=== PATIENT | female | born 1990 | race Caucasian/White ===

== ENCOUNTER → 2020-04-08 | Outpatient (CLI) | payer BC | END | disposition home or self-care (01) | LOC: LABWHC1 15:05 | PROVIDERS: ATTEND Family Medicine | DX: Z20.828 Contact with and (suspected) exposure to other viral communicable diseases (principal) | CPT/HCPCS: U0003; C9803 ==

== ENCOUNTER 2020-06-13 11:31 | Outpatient (CLI) | payer BC ==
[2020-06-13 12:10] VITALS: BP 137/76; PULSE 100; RESP 17; TEMP 97.7
--- NOTE | 2020-06-14 11:39 | P.MSEPDOC ---
Presenting Problems - Arrival Data Date of Arrival on Unit: 06/13/20 Time of Arrival on Unit: 11:31 Mode of Transport: Ambulatory - Complaint OB-Reason for Admission/Chief Complaint: Possible Onset of Labor, Other Comment: pt presents to triage with c/o contractions since 0500 that are 1-6 minutes. apart with a pain scale of 4/10, pt sitting in bed smiling answering questions, denies. complications at this time, reports + fm, denies lof/vb, abd soft on non tender Medical History - Information : 1 Para: 0 Term: 0 : 0 Abortions: Spontaneous or Elective: 0 Number of Living Children: 0 - Gestational Age Gestational Age by CY (wks/days): 39 Weeks and 2 Days Review of Systems - Review of Systems Constitutional: No problems Breast: No problems ENT: No problems Cardiovascular: No problems Respiratory: No problems Gastrointestinal: No problems Genitourinary: No problems Musculoskeletal: No problems Neurological: No problems Skin: No problems Vital Signs - Temperature Temperature: 97.7 F Temperature Source: Temporal Artery Scan - Pulse Right Brachial Pulse Rate: 100 Pulse Assessment Method: Automatic Cuff - Respirations Respiratory Rate: 17 Oxygen Delivery Method: Room Air - Blood Pressure Right Arm Blood Pressure: 137/76 Blood Pressure Mean: 96 Blood Pressure Source: Automatic Cuff Medical Screen Scoring (Pre) - Cervical Exam Dilation: 1-3 cm = 1 Effacement: More than 50% = 2 Membranes: Intact - Uterine Contractions Frequency: > or = 36 weeks =2 Duration: > 40 seconds = 2 Intensity: N/A - Maternal Vital Signs Maternal Temperature: N/A Maternal Blood Pressure: N/A Signs of Preeclampsia: N/A Maternal Respirations: N/A - Maternal Trauma Maternal Trauma: N/A - Assessment - Baby A Baseline FHR: 120 Heart Rate - NICHD Category: Category I (Normal) = 0 NST: Reactive Position: N/A Station: N/A - Total Score - Baby A Total Score - Baby A: 7 - Total Score - Baby B Total Score - Baby B: 7 - Total Score - Baby C Total Score - Baby C: 7 - Level of Risk - Baby A Level of Risk - Baby A: Medium (6-9) - Level of Risk - Baby B Level of Risk - Baby B: Medium (6-9) - Level of Risk - Baby C Level of Risk - Baby C: Medium (6-9) Physician Notification (Pre) - Physician Notified Physician Notified Date: 06/13/20 Physician Notified Time: 12:01 New Order Received: Yes (monitor for 1 hour) Medical Screen Scoring (Post) - Cervical Exam Dilation: 1-3 cm = 1 Effacement: More than 50% = 2 Membranes: Intact - Uterine Contractions Frequency: > or = 36 weeks =2 Duration: > 40 seconds = 2 Intensity: N/A - Maternal Vital Signs Maternal Temperature: N/A Maternal Blood Pressure: N/A Signs of Preeclampsia: N/A Maternal Respirations: N/A - Pain Assessment Pain Location and Character: Abdomen Pain Scale Used: Numeric (1 - 10) Pain Intensity: 4 Pain Description: *Acute, Cramping Pain Radiation Location: none Pain Frequency: Intermittent Pain Duration: 7 Pain Duration Units: Hours Pain Behavior: None Exhibited Pain Aggravating Factors: Contractions - Maternal Trauma Maternal Trauma: N/A - Assessment - Baby A Heart Rate: 120 Heart Rate - NICHD Category: Category I (Normal) = 0 NST: Reactive Position: N/A Station: N/A - Total Score Total Score - Baby A: 7 Total Score - Baby B: 7 Total Score - Baby C: 7 - Post Treatment Level of Risk Post Treatment Level of Risk - Baby A: Medium (6-9) Physician Notification (Post) - Physician Notified Physician Notified Date: 06/13/20 Physician Notified Time: 13:00 Physician/Practitioner Notified:: Malu Spoke With: Dr Toribio New Order Received: Yes (dc home) - Notification Comment Comment: pt ok to dc home at this time, reviewed dc home instructions, pt verbalizes understanding, pt has appt scheduled with Dr Yo 06/17 Disposition - Disposition OB Disposition: Discharge to home, Written follow up instructions reviewed Discharge Date: 06/13/20 Discharge Time: 13:10 I agree with the RN Medical Screening Exam: Yes Risk & Benefit of care provided described in d/c instruction: Yes Diagnosis: FALSE LABOR AT OR AFTER 37 COMPLETED WEEKS OF GESTATION
== END 2020-06-13 13:10 | disposition home or self-care (01) ==
LOC: FBPOP 11:31
PROVIDERS: ATTEND Obstetrics & Gynecology
DX: O47.1 False labor at or after 37 completed weeks of gestation (principal); Z3A.39 39 weeks gestation of pregnancy
CPT/HCPCS: 59025; 99213

== ENCOUNTER 2020-06-13 16:43 | Inpatient (IN) | payer BC ==
[2020-06-13] MEDS ORDERED: CARBOPROST TROMETHAMINE 250 MCG/ML 1 ML AMP IM PRN (18:06)
[2020-06-13] MEDS ORDERED: METHYLERGONOVINE 0.2 MG/ML 1 ML AMP IM PRN (18:06)
[2020-06-13] MEDS ORDERED: LIDOCAINE 0.5% (PF) 5 MG/ML (50 ML SDV) SQ PRN (18:06)
[2020-06-13] MEDS ORDERED: OXYTOCIN 10 UNIT/ML 1 ML VIAL IM PRN (18:06)
[2020-06-13] MEDS ORDERED: TERBUTALINE 1 MG/ML VIAL SQ PRN (18:06)
[2020-06-13] MEDS ORDERED: fentaNYL (PF) 50 MCG/ML 5 ML AMP ONE (18:13)
[2020-06-13] MEDS ORDERED: SODIUM CHLORIDE 0.9% 100 ML BAG ONE (18:13)
[2020-06-13] MEDS ORDERED: ROPIVACAINE 5MG/ML 20ML VIAL ONE (18:13)
[2020-06-13] MEDS ORDERED: LACTATED RINGERS 1,000 ML IV SCH ×2 (18:15)
[2020-06-13 18:23] LABS: Basophils % (A) 0 %; Eosinophils # (A) 0.1 k/uL (0-0.7); Eosinophils % (A) 1 %; HCT 33.8 % (34.0-46.0); HGB 10.7 gm/dL (11.4-16.0); Lymphocytes # (A) 1.4 k/uL (1.0-4.8); Lymphocytes % (A) 10 %; MCH 27.5 pg (25.0-35.0); MCHC 31.6 g/dL (31.0-37.0); MCV 86.9 fL (80.0-100.0); Mean Platelet Volume 8.2; Monocytes # (A) 0.7 k/uL (0-1.0); Monocytes % (A) 5 %; Neutrophils # (A) 11.7 k/uL (1.3-7.7); Neutrophils % (A) 82 %; Platelet Count 317 k/uL (150-450); RBC 3.89 m/uL (3.80-5.40); RDW 13.7 % (11.5-15.5); WBC 14.2 k/uL (3.8-10.6)
--- NOTE | 2020-06-13 20:22 | P.HPOB ---
History of Present Illness H&P Date: 06/13/20 Chief Complaint: 39+ weeks, active labor The patient is a 29-year-old 1 para 0 admitted at 39-2/7 weeks as established by last menstrual period and confirmed by second trimester ultrasound. She is admitted in active labor having made cervical change from 2 cm earlier in triage to approximate 6 cm at admission. Her has been uncomplicated and group B strep status is negative. On labor and delivery, all signs reassuring with a category 1 heart rate tracing. Review of Systems Review of systems is confined to history of present illness. Past Medical History Past Medical History: No Reported History History of Any Multi-Drug Resistant Organisms: None Reported Past Surgical History: Appendectomy Past Anesthesia/Blood Transfusion Reactions: No Reported Reaction Past Psychological History: Anxiety, Depression Smoking Status: Never smoker Past Alcohol Use History: None Reported Past Drug Use History: None Reported - Past Family History Father Family Medical History: No Reported History Medications and Allergies Home Medications Medication Instructions Recorded Confirmed Type FLUoxetine HCL [PROzac] 10 mg PO DAILY 06/13/20 06/13/20 History Allergies Allergy/AdvReac Type Severity Reaction Status Date / Time No Known Allergies Allergy Verified 06/13/20 17:20 Exam Vital Signs Temp Pulse Resp BP Pulse Ox 06/13/20 17:21 98.4 F 88 16 121/76 99 Intake and Output 06/13/20 06/13/20 06/13/20 06:59 14:59 22:59 Other: Weight 69.853 kg In general, this is a well-developed, well-nourished white female in no acute distress. Her heart has a regular rhythm and rate without murmur. Her lungs are clear to auscultation bilaterally in all cabezas. Her abdomen is gravid, nondistended, has normal active bowel sounds, soft, nontender, and without any palpable masses aside from uterine fundus. Her extremities are without any cyanosis, clubbing, or significant edema and are nontender to palpation bilaterally. Digital cervical examination on straights her cervix to approximately 7 cm dilated, 90% effaced, the vertex in presentation at -1-2 station. At the time of cervical check, she had spontaneous rupture of membranes demonstrating lightly meconium-stained fluid. Results Result Diagrams: 06/13/20 18:13 Abnormal Lab Results - Last 24 Hours (Table) 06/13/20 Range/Units 18:13 WBC 14.2 H (3.8-10.6) k/uL Hgb 10.7 L (11.4-16.0) gm/dL Hct 33.8 L (34.0-46.0) % Neutrophils # 11.7 H (1.3-7.7) k/uL Assessment and Plan (1) Meconium in amniotic fluid affecting management of mother Current Visit: Yes Status: Acute Code(s): O36.8990 - MATERNAL CARE FOR OTH PROBLEMS, UNSP TRIMESTER, UNSP SNOMED Code(s): 46819689 (2) Active labor at term Current Visit: Yes Status: Acute Code(s): [id number] - SNOMED Code(s): 76001733 Plan: The patient will continue to have close maternal and surveillance and expectant management will be practiced. She has had an epidural catheter placed for analgesia and is quite comfortable. Should there be no significant mold insert changer the next 1-2 hours, Pitocin augmentation will be added. I would anticipate normal vaginal delivery in the next several hours.
[2020-06-13] MEDS ORDERED: diphenhydrAMINE 25 MG CAP PO PRN (22:22)
[2020-06-13] MEDS ORDERED: HYDROcodone/APAP 7.5-325MG 1 EACH TAB PO PRN (22:22)
[2020-06-13] MEDS ORDERED: diphenhydrAMINE 50 MG CAP PO PRN (22:22)
[2020-06-13] MEDS ORDERED: HYDROcodone/APAP 5-325MG 1 EACH TAB PO PRN (22:22)
[2020-06-13] MEDS ORDERED: ACETAMINOPHEN TAB 325 MG TAB PO PRN (22:22)
[2020-06-13] MEDS ORDERED: LANOLIN CREAM 5 GM TUBE TOPICAL PRN (22:22)
[2020-06-13] MEDS ORDERED: ZOLPIDEM 5 MG TAB PO PRN (22:22)
[2020-06-13] MEDS ORDERED: SIMETHICONE 80 MG CHEWABLE PO PRN (22:22)
[2020-06-13] MEDS ORDERED: BENZOCAINE/MENTHOL SPRAY 1 GM/SPRAY AEROSOL TOPICAL PRN (22:22)
[2020-06-13] MEDS ORDERED: diphenhydrAMINE 50 MG/ML 1 ML VIAL IVP PRN ×2 (22:22)
--- NOTE | 2020-06-13 22:25 | P.PROBDLV ---
Vaginal Delivery Note - . Vaginal Delivery Note: The patient is a 29-year-old 1 para 0 admitted at 39-2/7 weeks by good dating parameters. She is admitted in early active labor with all signs reassuring. Her has been entirely uncomplicated and group B strep status is negative. On labor and delivery she had an epidural catheter placed for analgesia and had spontaneous rupture of membranes with what appeared to be lightly meconium-stained fluid. She then made fairly quick progress to the remainder of the active phase of labor to complete and +2 station. She pushed over the course of approximately 10 minutes to a normal spontaneous vaginal delivery of a viable 7 lbs. 11 oz. baby girl with Apgars of 8 at 1 minute and 9 at 5 minutes delivered in the right occiput anterior position. The placenta was delivered spontaneously, intact, and grossly normal with a grossly normal, centrally inserted three-vessel cord. There were no significant lacerations of the perineum, vagina, or cervix. As noted above loss for the entire case was approximately 150 mL. There were no complications. Both mother and infant are resting comfortably in recovery.
[2020-06-13] MEDS ORDERED: OXYTOCIN 20 UNITS/1000 ML NS 1,000 ML IV SCH (22:30)
[2020-06-13] MEDS ORDERED: HYDROCORTISONE 2.5% RECTAL CREAM 30 GM TUBE RECTAL PRN (23:00)
[2020-06-14 06:53] LABS: Basophils % (A) 0 %; Eosinophils # (A) 0.1 k/uL (0-0.7); Eosinophils % (A) 0 %; HCT 29.5 % (34.0-46.0); HGB 9.4 gm/dL (11.4-16.0); Hypochromasia Slight; Lymphocytes # (A) 1.2 k/uL (1.0-4.8); Lymphocytes % (A) 9 %; MCH 27.9 pg (25.0-35.0); MCV 87.1 fL (80.0-100.0); Mean Platelet Volume 8.6; Monocytes # (A) 0.9 k/uL (0-1.0); Monocytes % (A) 7 %; Neutrophils # (A) 10.9 k/uL (1.3-7.7); Neutrophils % (A) 82 %; Platelet Count 247 k/uL (150-450); RBC 3.38 m/uL (3.80-5.40); RDW 13.7 % (11.5-15.5); WBC 13.3 k/uL (3.8-10.6)
[2020-06-14] MEDS: IBUPROFEN 600 MG TAB PO PRN ×3 (09:32→22:40)
[2020-06-14] MEDS: SENNOSIDES-DOCUSATE SODIUM 1 EACH TAB PO SCH ×2 (09:32→19:46)
--- NOTE | 2020-06-14 11:34 | P.DS ---
Providers Date of admission: 06/13/20 18:01 Expected date of discharge: 06/14/20 Attending physician: Cielo Yo Primary care physician: Stated None - Discharge Diagnosis(es) (1) Meconium in amniotic fluid affecting management of mother Current Visit: Yes Status: Acute (2) Active labor at term Current Visit: Yes Status: Acute (3) Normal spontaneous vaginal delivery Current Visit: Yes Status: Acute Hospital Course: The patient is a 29-year-old 1 para 0 admitted at 39-2/7 weeks by good dating parameters. She is admitted in active labor with all signs reassuring. Her has been uncomplicated and group B strep status is negative. On labor and delivery, she had an epidural catheter placed for analgesia and then had spontaneous rupture of membranes for what appeared to be light meconium-stai suzette fluid. She progressed fairly quickly through the active phase of labor to complete and then pushed fairly quickly over the course of approximately 10 minutes to a normal spontaneous vaginal delivery of a viable 7 lbs. 11 oz. baby girl with Apgars of 8 at 1 minute and 9 at 5 minutes. Her course has been unremarkable with vital signs remaining stable and her temperature was afebrile throughout. She was deemed stable for discharge on day #1 and was discharged home to follow-up in the office in 6 weeks' time routinely. Discharge instructions included calling for any significantly increased bleeding or foul-smelling lochia, significantly increased fever abdominal pain, perineal complaints, breast complaints, or anything else that concerned her. She was additionally instructed to have nothing in the vagina for at least 6 weeks time to include intercourse. She understood all of her instructions and agrees to follow up as noted above. Discharge medications included continued vitamins as she has opted to breast-feed as well as [id number] analgesic pain medications as needed. Maternal blood type is O+ and rubella status is immune. Procedures: #1. Epidural analgesia #2. Normal spontaneous vaginal delivery Patient Condition at Discharge: Stable Plan - Discharge Summary New Discharge Prescriptions: No Action FLUoxetine HCL [PROzac] 10 mg PO DAILY Discharge Medication List FLUoxetine HCL [PROzac] 10 mg PO DAILY 06/13/20 [History] Follow up Appointment(s)/Referral(s): Cielo Yo DO [Doctor of Osteopathic Medicine] - 6 Weeks Discharge Disposition: HOME SELF-CARE
--- NOTE | 2020-06-14 11:40 | P.MSEPDOC ---
Presenting Problems - Arrival Data Date of Arrival on Unit: 06/13/20 Time of Arrival on Unit: 18:00 Mode of Transport: Wheelchair - Complaint OB-Reason for Admission/Chief Complaint: Possible Onset of Labor Comment: second visit to triage today Medical History - Information : 1 Para: 0 Term: 0 : 0 Abortions: Spontaneous or Elective: 0 Number of Living Children: 0 - Gestational Age Gestational Age by CY (wks/days): 39 Weeks and 2 Days Review of Systems - Review of Systems Constitutional: No problems Breast: No problems ENT: No problems Cardiovascular: No problems Respiratory: No problems Gastrointestinal: No problems Genitourinary: No problems Musculoskeletal: No problems Neurological: No problems Skin: No problems Vital Signs - Temperature Temperature: 98.0 F Temperature Source: Oral - Pulse Right Pulse Rate: 88 Pulse Assessment Method: Automatic Cuff - Respirations Respiratory Rate: 16 Oxygen Delivery Method: Room Air - Blood Pressure Right Arm Blood Pressure: 121/74 Blood Pressure Mean: 89 Blood Pressure Source: Automatic Cuff Medical Screen Scoring (Pre) - Cervical Exam Dilation: 4-7 cm = 2 Effacement: More than 50% = 2 Membranes: Intact - Uterine Contractions Frequency: > or = 36 weeks =2 Duration: > 40 seconds = 2 Intensity: Contraction palpated strong = 1 - Maternal Vital Signs Maternal Temperature: N/A Maternal Blood Pressure: N/A Signs of Preeclampsia: N/A Maternal Respirations: N/A - Maternal Trauma Maternal Trauma: N/A - Assessment - Baby A Baseline FHR: 125 Heart Rate - NICHD Category: Category I (Normal) = 0 NST: Reactive Position: N/A Station: N/A - Total Score - Baby A Total Score - Baby A: 9 - Total Score - Baby B Total Score - Baby B: 9 - Total Score - Baby C Total Score - Baby C: 9 - Level of Risk - Baby A Level of Risk - Baby A: Medium (6-9) - Level of Risk - Baby B Level of Risk - Baby B: Medium (6-9) - Level of Risk - Baby C Level of Risk - Baby C: Medium (6-9) Physician Notification (Pre) - Physician Notified Physician Notified Date: 06/13/20 Disposition - Disposition OB Disposition: Admit, LDRP Suite I agree with the RN Medical Screening Exam: Yes Risk & Benefit of care provided described in d/c instruction: Yes Diagnosis: ENCOUNTER FOR FULL-TERM UNCOMPLICATED DELIVERY
[2020-06-15] MEDS: IBUPROFEN 600 MG TAB PO PRN ×2 (04:44→13:14)
[2020-06-15 07:48] VITALS: RESP 16
--- NOTE | 2020-06-15 08:50 | P.PNOBGVD ---
Subjective - Subjective Principal diagnosis: PPD 2 Interval history: This 29-year-old 1 now para 1 status post normal spontaneous vaginal delivery of a viable female infant 7 lbs. 11 oz. Patient has done well since delivery. She is ambulating and voiding without difficulty. Her lochia is moderate. She is breast-feeding without difficulty. She states her pain is well-controlled with oral ibuprofen. She did stay overnight secondary to elevated bilirubin levels with the infant. remains on bili lights currently. Patient denies concerns and be discharged home later today. Patient reports: Reports appetite normal, Reports voiding normally, Reports pain well controlled : doing well (On bili lights), nursing well Objective - Latest Vital Signs Latest vital signs: Vital Signs Temp Pulse Resp BP Pulse Ox 06/15/20 07:48 74 16 06/15/20 07:47 98.0 F 74 16 107/63 06/15/20 00:00 98.1 F 80 18 117/73 99 06/14/20 16:00 98.3 F 83 16 110/65 06/14/20 11:40 98.0 F 88 16 121/74 06/14/20 09:00 98.0 F 88 16 121/74 Intake and Output 06/14/20 06/15/20 06/15/20 22:59 06:59 14:59 Other: Voiding Method Toilet # Voids 2 2 1 # Bowel Movements 1 - Exam Extremities: Present: normal, edema Abdomen: Present: normal appearance Uterus: Present: normal, firm Assessment and Plan (1) Active labor at term Current Visit: Yes Status: Acute Code(s): [id number] - SNOMED Code(s): 82567242 (2) Meconium in amniotic fluid affecting management of mother Current Visit: Yes Status: Acute Code(s): O36.8990 - MATERNAL CARE FOR OTH PROBLEMS, UNSP TRIMESTER, UNSP SNOMED Code(s): 40942893 (3) Normal spontaneous vaginal delivery Current Visit: Yes Status: Acute Code(s): O80 - ENCOUNTER FOR FULL-TERM UNCOMPLICATED DELIVERY SNOMED Code(s): 92450219 Plan: Patient is doing well . We'll plan discharge home later this evening. instructions reviewed with patient. We'll plan follow-up in 4 weeks for routine examination.
[2020-06-15] MEDS: SENNOSIDES-DOCUSATE SODIUM 1 EACH TAB PO SCH (09:50)
[2020-06-15 16:02] VITALS: BP 112/62; PULSE 72; TEMP 98.1
== END 2020-06-15 18:50 | disposition home or self-care (01) | DRG 807 ==
LOC: FBPOP 16:43 → 4FBP 18:01
PROVIDERS: ADMIT Obstetrics & Gynecology; ATTEND Obstetrics & Gynecology Obstetrics
PROC: 10E0XZZ Delivery of Products of Conception, External Approach (ICD-10-PCS; principal; 2020-06-13)
PROC: 3E0R3BZ Introduction of Anesthetic Agent into Spinal Canal, Percutaneous Approach (ICD-10-PCS; 2020-06-13)
DX: O77.0 Labor and delivery complicated by meconium in amniotic fluid (principal); Z37.0 Single live birth; O99.344 Other mental disorders complicating childbirth; F32.9 Major depressive disorder, single episode, unspecified; F41.9 Anxiety disorder, unspecified; Z3A.39 39 weeks gestation of pregnancy; Z79.899 Other long term (current) drug therapy
CPT/HCPCS: 59025; 85025; 86850; 86900; 86901; 99213

== ENCOUNTER → 2020-07-07 | Outpatient (CLI) | payer BC | END | disposition home or self-care (01) | LOC: LABWHC1 13:50 | PROVIDERS: ATTEND Physician Assistant Medical | DX: Z20.828 Contact with and (suspected) exposure to other viral communicable diseases (principal) | CPT/HCPCS: U0003; C9803 ==